=== PATIENT | female | born 1955 | race Caucasian/White ===

== ENCOUNTER → 2017-10-07 09:00 | Outpatient (CLI) | payer OTHER, SELFPAY ==
[2017-10-07 09:44] LABS: Protein, Urine (Random) < 6.0 mg/dL (<11.9); Protein:Creat Ratio 143 mg/g CRE (0-200)
[2017-10-07 09:55] LABS: Anion Gap 10 (5-15); BUN 23 mg/dL (7-18); BUN/Creat Ratio 18.9 RATIO (10-20); Calcium,Total 8.9 mg/dL (8.5-10.1); Chloride 102 mmol/L (98-107); Creatinine, Serum 1.22 mg/dL (0.55-1.02); EST Glomerular Filtration Rate 47 mL/min (>60); Est Glom Filt Rate - Afr Amer 57 mL/min (>60); Glucose 91 mg/dL (74-106); Potassium 4.1 mmol/L (3.5-5.1); Sodium Level 137 mmol/L (136-145)
== END ==
PROVIDERS: Family Provider Internal Medicine; PCP Internal Medicine; Visit Provider Internal Medicine Nephrology
DX: N18.3 Chronic kidney disease, stage 3 (moderate) (principal); R80.9 Proteinuria, unspecified
CPT/HCPCS: 36415; 80048; 82570; 84156

== ENCOUNTER → 2018-08-11 08:39 | Outpatient (CLI) | payer MEDICARE, SELFPAY ==
[2018-08-11 10:24] LABS: Mean Corp Hgb Conc 30.8 g/gl (32-36); Mean Corpuscular Volume 87.6 fL (81-99); Platelet Count 152 K/mm3 (150-450); RBC Distribution Width CV 14.3 % (11.6-14.6); RBC Distribution Width SD 46.3 fl (35.1-43.9); Red Blood Count 4.45 M/mm3 (4.2-5.4); White Blood Count 4.7 K/mm3 (4.4-11.0)
[2018-08-11 10:26] LABS: Scan Indicated on CBC? Y/N NO
[2018-08-11 10:47] LABS: Protein, Urine (Random) < 6.0 mg/dL (<11.9)
[2018-08-11 10:58] LABS: PTHIN 110.3 pg/mL (18.4-80.1)
[2018-08-11 10:59] LABS: Vitamin D,25 Hydroxy 43.2 ng/mL (29.95-100.01)
[2018-08-11 11:02] LABS: Albumin, Serum 4.1 g/dL (3.2-5.0); BUN 23 mg/dL (7-18); BUN/Creat Ratio 19.3 RATIO (10-20); Chloride 104 mmol/L (98-107); Creatinine, Serum 1.19 mg/dL (0.55-1.02); EST Glomerular Filtration Rate 48 mL/min (>60); Est Glom Filt Rate - Afr Amer 59 mL/min (>60); Glucose 88 mg/dL (74-106); Phosphorus 3.2 mg/dL (2.5-4.9); Potassium 4.2 mmol/L (3.5-5.1); Sodium Level 139 mmol/L (136-145)
== END ==
PROVIDERS: Family Provider Internal Medicine; PCP Internal Medicine; Referring Provider Internal Medicine Nephrology; Visit Provider Internal Medicine Nephrology
DX: N18.3 Chronic kidney disease, stage 3 (moderate) (principal)
CPT/HCPCS: 36415; 80069; 82306; 82570; 83970; 84156; 85027

== ENCOUNTER → 2018-10-07 07:50 | Outpatient (CLI) | payer MEDICARE, SELFPAY ==
--- NOTE | 2018-10-07 07:53 | US_ITS ---
STUDY: ABDOMINAL ULTRASOUND - RIGHT UPPER QUADRANT REASON FOR VISIT: Female, 63 years old. Abdominal mass TECHNIQUE: Ultrasound evaluation of the right upper quadrant was performed with real-time and static morejon-scale imaging. TECHNICAL QUALITY: Adequate. COMPARISON: None. FINDINGS: Liver: The liver measures 22 cm. There is normal echogenicity of the liver. The bile ducts are within normal limits. There is hepatic color flow. The direction of portal flow is hepatopetal. There are innumerable cystic lesions within the liver. Gallbladder: Distended gallbladder with possible septation. The gallbladder wall measures 2.1 mm. There is a negative sonographic Winter's sign. There is no pericholecystic fluid. There are no gallstones. Common Bile Duct (C.B.D.): The common bile duct measures 3.7 mm. Pancreas: Limited visualization of the pancreas. Right Kidney: Normal size of the right kidney. The right kidney measures 15.3 x 10.6 x 7.0 cm. Normal renal cortex. The right cortex measures 2.0 cm. There are innumerable cystic lesions of the right kidney. There is no right hydronephrosis. US/Abdomen Limited IMPRESSION: Innumerable cystic lesions are noted within the liver and right kidney. Electronically Signed: Dayton Frankel DO at 0:00 EST Tel [phone], Service support ,
--- NOTE | 2018-10-07 08:51 | BD_ITS ---
STUDY: DUAL ENERGY X-RAY ABSORPTIOMETRY / DXA REASON FOR EXAM: Female, 63 years old. The patient is postmenopausal. No loss of height. TECHNIQUE: Bone Mineral Density (BMD) measurements of lumbar spine and bilateral hips were obtained. COMPARISON: Comparison is made with prior study dated October 02, 2011. FINDINGS: Lumbar Spine (L1-L4): g/cm2 (1.105) / T-score (-0.6) / Z-score (1.0) Findings are suggestive of normal bone density with a low fracture risk. Left Femur Total: g/cm2 (0.897) / T-score (-0.9) / Z-score (0.3) Left Femoral Neck: g/cm2 (0.914) / T-score (-0.9) / Z-score (0.6) Right Femur Total: g/cm2 (0.904) / T-score (-0.8) / Z-score (0.4) Right Femoral Neck: g/cm2 (0.861) / T-score (-1.3) / Z-score (0.2) The T-Scores on the most recent prior examination were: Lumbar Spine (L1-L4): There has been worsening of bone density since the previous examination. Left Femur Total: which represents a worsening of 10.8%. Right Femur Total: which represents a worsening of 9.8%. BD/Dexa Bone Density Study IMPRESSION: The patient is considered osteopenic as outlined below according to World Vaibhav Organization (WHO) criteria with a moderate fracture risk. There has been worsening of bone density since the previous examination. Reference Information: The T-score is the number of standard deviations above or below the standard which is normal for young adults at their peak bone mineral density. The World Health Organization (WHO) interprets the T-scores as follows: Above -1 Normal bone density Between -1 and -2.5 Osteopenia Equal to / or below -2.5 Osteoporosis As a practical clinical guideline, osteopenia may be graded as follows: Mild -1 through -1.5 Moderate -1.6 through -2.0 Severe -2.1 through -2.4 The Z-score is the number of standard deviations above or below age-matched controls. A Z-score of less than -1.5 would be considered abnormal. References: 1. NIH Osteoporosis and Related Bone Diseases http://www.osteo.org 2. International Society for Clinical Densitometry http://www.iscd.org 3. National Osteoporosis Foundation http://www.nof.org Electronically Signed: Danis Chin, at 15:18 EST , Service support ,
== END ==
PROVIDERS: Family Provider Internal Medicine; PCP Internal Medicine; Referring Provider Internal Medicine; Visit Provider Internal Medicine
DX: R19.01 Right upper quadrant abdominal swelling, mass and lump (principal); Z78.0 Asymptomatic menopausal state
CPT/HCPCS: 76705; 77080

== ENCOUNTER → 2019-05-04 | Outpatient (CLI) | payer MEDICARE, SELFPAY ==
--- NOTE | 2019-05-04 12:31 | MRI_ITS ---
STUDY: MRA OF THE HEAD WITHOUT CONTRAST REASON FOR EXAM: Female, 64 years old. Polycystic renal disease. Previous left ear stapes implant. TECHNIQUE: 3-D ttkw-gs-ebtkui (TOF) imaging was performed with MIPs. The study was performed unenhanced. COMPARISON: None. FINDINGS: Normal bilateral petrous carotid arteries. Normal right cavernous carotid artery with a normal supraclinoid bifurcation. Normal left cavernous carotid artery with a normal supraclinoid bifurcation. Normal right A1 segment of the anterior cerebral artery. Normal left A1 segment of the anterior cerebral artery. Normal intact anterior communicating artery (ACOM). Normal bilateral A2 segments of the anterior cerebral arteries. Normal right M1 and M2 segments of the middle cerebral arteries, with a normal M1 bifurcation. Normal left M1 and M2 segments of the middle cerebral arteries, with a normal M1 bifurcation. No visible right posterior communicating artery (PCOM). No visible left posterior communicating artery (PCOM). Normal bilateral vertebral arteries. The left vertebral artery is dominant. Normal basilar artery with a normal basilar bifurcation. The visualized bilateral superior cerebellar (SCA) arteries are normal. Normal bilateral P1, P2 and visualized P3 segments of the posterior cerebral arteries. There is no demonstrated aneurysm of the [place]. There is no major vessel occlusion or hemodynamically significant stenosis. MRI/MRA Head ONLY without Contrast IMPRESSION: Normal MRA of the head Electronically Signed: Elia Lind MD at 16:25 EDT , Service support ,
[2019-05-04 13:34] LABS: Protein, Urine (Random) < 6.0 mg/dL (<11.9)
[2019-05-04 13:41] LABS: Hematocrit 40.9 % (37-47); Hemoglobin 12.9 g/dL (12.0-15.0); Mean Corp Hgb Conc 31.5 g/dL (32-36); Mean Corpuscular Hgb 29.7 pg (27.0-32.0); Mean Platelet Vol. 9.6 fl (6.2-12.0); Platelet Count 159 K/mm3 (150-450); RBC Distribution Width CV 13.8 % (11.6-14.6); RBC Distribution Width SD 47.4 fl (35.1-43.9); Red Blood Count 4.35 M/mm3 (4.2-5.4)
[2019-05-04 13:55] LABS: Albumin, Serum 3.8 g/dL (3.2-5.0); BUN 22 mg/dL (7-18); BUN/Creat Ratio 17.6 RATIO (10-20); Chloride 109 mmol/L (98-107); Creatinine, Serum 1.25 mg/dL (0.55-1.02); EST Glomerular Filtration Rate 46 mL/min (>60); Est Glom Filt Rate - Afr Amer 55 mL/min (>60); Glucose 110 mg/dL (74-106); Potassium 3.8 mmol/L (3.5-5.1); Sodium Level 144 mmol/L (136-145)
[2019-05-04 14:41] LABS: PTHIN 59.2 pg/mL (18.4-80.1); Vitamin D,25 Hydroxy 35.8 ng/mL (29.95-100.01)
== END | disposition home or self-care (01) ==
PROVIDERS: Family Provider Internal Medicine; PCP Internal Medicine; Referring Provider Internal Medicine Nephrology; Visit Provider Internal Medicine Nephrology
DX: Q61.3 Polycystic kidney, unspecified (principal); N18.3 Chronic kidney disease, stage 3 (moderate); E55.9 Vitamin D deficiency, unspecified
CPT/HCPCS: 36415; 70544; 80069; 82306; 82570; 83970; 84156; 85027

== ENCOUNTER → 2020-05-05 | Outpatient (CLI) | payer MEDICARE, SELFPAY ==
[2020-05-05 11:03] LABS: Hematocrit 39.6 % (37-47); Hemoglobin 12.6 g/dL (12.0-15.0); Mean Corp Hgb Conc 31.8 g/dL (32-36); Mean Corpuscular Hgb 30.1 pg (27.0-32.0); Mean Corpuscular Volume 94.5 fL (81-99); Mean Platelet Vol. 9.3 fl (6.2-12.0); Platelet Count 156 K/mm3 (150-450); Protein, Urine (Random) < 6.0 mg/dL (<11.9); Protein:Creat Ratio 105 mg/g CRE (0-200); RBC Distribution Width SD 45.4 fl (35.1-43.9); Red Blood Count 4.19 M/mm3 (4.2-5.4); White Blood Count 4.7 K/mm3 (4.4-11.0)
[2020-05-05 11:15] LABS: PTHIN 63.1 pg/mL (18.4-80.1)
[2020-05-05 11:16] LABS: Albumin, Serum 3.7 g/dL (3.2-5.0); BUN 23 mg/dL (7-18); BUN/Creat Ratio 17.4 RATIO (10-20); Calcium,Total 9.2 mg/dL (8.5-10.1); Chloride 104 mmol/L (98-107); Creatinine, Serum 1.32 mg/dL (0.55-1.02); EST Glomerular Filtration Rate 43 mL/min (>60); Est Glom Filt Rate - Afr Amer 52 mL/min (>60); Glucose 84 mg/dL (74-106); Phosphorus 2.9 mg/dL (2.5-4.9); Potassium 4.6 mmol/L (3.5-5.1); Sodium Level 137 mmol/L (136-145)
[2020-05-05 11:19] LABS: Vitamin D,25 Hydroxy 54.8 ng/mL
== END | disposition home or self-care (01) ==
LOC: LAB 09:50
PROVIDERS: PCP Internal Medicine; Referring Provider Internal Medicine Nephrology; Visit Provider Internal Medicine Nephrology
DX: E55.9 Vitamin D deficiency, unspecified (principal); N18.3 Chronic kidney disease, stage 3 (moderate); R80.9 Proteinuria, unspecified
CPT/HCPCS: 36415; 80069; 82306; 82570; 83970; 84156; 85027

== ENCOUNTER → 2020-07-11 07:09 | Outpatient (CLI) | payer MEDICARE, SELFPAY ==
[2020-07-11 07:33] LABS: Hematocrit 43.9 % (37-47); Hemoglobin 13.8 g/dL (12.0-15.0); Mean Corp Hgb Conc 31.4 g/dL (32-36); Mean Corpuscular Hgb 29.6 pg (27.0-32.0); Mean Platelet Vol. 9.2 fl (6.2-12.0); Platelet Count 148 K/mm3 (150-450); RBC Distribution Width CV 12.7 % (11.6-14.6); RBC Distribution Width SD 43.9 fl (35.1-43.9); Red Blood Count 4.67 M/mm3 (4.2-5.4); White Blood Count 4.4 K/mm3 (4.4-11.0)
[2020-07-11 07:44] LABS: Protein, Urine (Random) 10.1 mg/dL (<11.9); Protein:Creat Ratio 101 mg/g CRE (0-200)
[2020-07-11 07:54] LABS: Albumin, Serum 4.2 g/dL (3.2-5.0); BUN 20 mg/dL (7-18); BUN/Creat Ratio 14.3 RATIO (10-20); Calcium,Total 9.5 mg/dL (8.5-10.1); Chloride 108 mmol/L (98-107); EST Glomerular Filtration Rate 40 mL/min (>60); Est Glom Filt Rate - Afr Amer 48 mL/min (>60); Glucose 89 mg/dL (74-106); Phosphorus 3.2 mg/dL (2.5-4.9); Potassium 4.1 mmol/L (3.5-5.1); Sodium Level 140 mmol/L (136-145)
[2020-07-11 09:06] LABS: Vitamin D,25 Hydroxy 54.9 ng/mL
== END ==
PROVIDERS: PCP Internal Medicine; Referring Provider Internal Medicine Nephrology; Visit Provider Internal Medicine Nephrology
DX: N18.30 Chronic kidney disease, stage 3 unspecified (principal); E55.9 Vitamin D deficiency, unspecified; R80.9 Proteinuria, unspecified
CPT/HCPCS: 36415; 80069; 82306; 82570; 83970; 84156; 85027

== ENCOUNTER 2020-10-13 06:57 | Outpatient (RCR) | payer MEDICARE, SELFPAY ==
[2020-10-13] MEDS: COVID-19 VACC, MRNA(PFIZER)/PF 30 MCG/0.3 ML SYRINGE IM (11:33)
[2020-11-03] MEDS: COVID-19 VACC, MRNA(PFIZER)/PF 30 MCG/0.3 ML SYRINGE IM (11:22)
== END 2020-10-13 23:59 ==
LOC: IMMUN 06:57
PROVIDERS: PCP Internal Medicine; Referring Provider Family Medicine; Visit Provider Family Medicine
DX: Z23 Encounter for immunization (principal)
CPT/HCPCS: 0001A; 0002A

== ENCOUNTER → 2021-01-13 09:47 | Outpatient (CLI) | payer MEDICARE, SELFPAY ==
[2021-01-13 10:37] LABS: Protein, Urine (Random) 7.8 mg/dL (<11.9); Protein:Creat Ratio 169 mg/g CRE (0-200)
[2021-01-13 10:41] LABS: Anion Gap 5 (5-15); BUN 17 mg/dL (7-18); BUN/Creat Ratio 12.9 RATIO (10-20); Calcium,Total 9.2 mg/dL (8.5-10.1); Chloride 105 mmol/L (98-107); Creatinine, Serum 1.32 mg/dL (0.55-1.02); EST Glomerular Filtration Rate 43 mL/min (>60); Est Glom Filt Rate - Afr Amer 52 mL/min (>60); Glucose 90 mg/dL (74-106); Potassium 4.2 mmol/L (3.5-5.1); Sodium Level 138 mmol/L (136-145)
== END ==
PROVIDERS: PCP Internal Medicine; Referring Provider Internal Medicine Nephrology; Visit Provider Internal Medicine Nephrology
DX: N18.32 Chronic kidney disease, stage 3b (principal)
CPT/HCPCS: 36415; 80048; 82570; 84156

== ENCOUNTER → 2021-07-12 08:40 | Outpatient (CLI) | payer MEDICARE, SELFPAY ==
[2021-07-12 10:27] LABS: Absolute Lymphocyte Count 1.21 X10^3/uL (0.83-4.51); Absolute Neutrophil Count 2.4 X10^3/uL (2.0-7.7); Basophil# 0.03 X10^3/uL; Basophil% 0.7 % (0-1); Eosinophil# 0.14 X10^3/uL; Eosinophils% 3.4 % (0-5); Hematocrit 38.3 % (37-47); Hemoglobin 12.4 g/dL (12.0-15.0); Lymphocyte # 1.21 X10^3/ul (0.83-4.51); Lymphocyte % 29.1 % (19-41); Mean Corp Hgb Conc 32.4 g/dL (32-36); Mean Corpuscular Hgb 30.2 pg (27.0-32.0); Mean Corpuscular Volume 93.4 fL (81-99); Mean Platelet Vol. 9.6 fl (6.2-12.0); Monocyte# 0.37 X10^3/uL; Monocyte% 8.9 % (0-10); NRBC Flagged by Analyzer 0 % (0-5); Neutrophil % 57.7 % (47-70); Platelet Count 148 K/mm3 (150-450); RBC Distribution Width CV 13.4 % (11.6-14.6); RBC Distribution Width SD 46.1 fl (35.1-43.9); White Blood Count 4.2 K/mm3 (4.4-11.0)
[2021-07-12 10:51] LABS: Protein, Urine (Random) 12.5 mg/dL (<11.9); Protein:Creat Ratio 156 mg/g CRE (0-200)
[2021-07-12 11:14] LABS: ALB/GLOB Ratio 1.1 RATIO (0.9-2.4); AST(SGOT) 40 U/L (15-37); Alanine Aminotransfer ALT/SGPT 52 U/L (13-56); Albumin, Serum 3.6 g/dL (3.2-5.0); Alkaline Phosphatase 296 U/L (45-117); Anion Gap 8 (5-15); BUN 25 mg/dL (7-18); BUN/Creat Ratio 19.4 RATIO (10-20); Calcium,Total 9.1 mg/dL (8.5-10.1); Chloride 103 mmol/L (98-107); Cholesterol 221 mg/dL (200); Creatinine, Serum 1.29 mg/dL (0.55-1.02); EST Glomerular Filtration Rate 44 mL/min (>60); Est Glom Filt Rate - Afr Amer 53 mL/min (>60); Globulin 3.2 g/dL (2.2-4.2); Glucose 85 mg/dL (74-106); High Density Lipoprotein 91 mg/dL; Potassium 4.5 mmol/L (3.5-5.1); Protein, Total 6.8 g/dL (6.4-8.2); Sodium Level 137 mmol/L (136-145); Thyroid Stim Hormone (TSH) 5.47 uIU/mL (0.358-3.74); Triglycerides 52 mg/dL; Very Low Density Lipoprotein 10 mg/dL (5-40)
== END ==
PROVIDERS: PCP Internal Medicine; Visit Provider Internal Medicine
DX: N18.32 Chronic kidney disease, stage 3b (principal); R82.90 Unspecified abnormal findings in urine; Z13.220 Encounter for screening for lipoid disorders
CPT/HCPCS: 36415; 80053; 80061; 82570; 84156; 84443; 85025; 87086; 87088

== ENCOUNTER → 2021-07-24 07:38 | Outpatient (CLI) | payer MEDICARE, SELFPAY ==
--- NOTE | 2021-07-24 07:39 | US_ITS ---
STUDY: ABDOMINAL ULTRASOUND - RIGHT UPPER QUADRANT REASON FOR VISIT: Female, 66 years old ABDOMINAL MASS RUQ- pt has known polycystic kidney/liver TECHNIQUE: Ultrasound evaluation of the right upper quadrant was performed with real-time and static morejon-scale imaging. TECHNICAL QUALITY: Adequate. COMPARISON: Comparison is made with prior study dated 08/06/2019. FINDINGS: Liver: The liver is enlarged and measures 20.3 cm. There is normal echogenicity of the liver. The bile ducts are within normal limits. There is hepatic color flow. The direction of portal flow is hepatopetal. Multiple cysts are seen throughout the liver. This involves both the right and left lobes. Gallbladder: Normal distended gallbladder. The gallbladder wall measures 2 mm. There is a negative sonographic Winter''s sign. There is no pericholecystic fluid. There are no gallstones. Common Bile Duct (C.B.D.): The common bile duct was unable to be well defined due to the multiple hepatic cysts. Pancreas: Normal size of the head, body and tail of the pancreas. There is normal echogenicity of the pancreas. There is no demonstrated pancreatic mass or cyst. Right Kidney: Normal size of the right kidney. The right kidney measures 16.1 cm x 9.7 cm x 6.8 cm. Multiple renal cysts. There is no right hydronephrosis. US/Liver IMPRESSION: Multiple hepatic and right renal cysts. Hepatomegaly. Electronically Signed: Danis Chin MD at 13:28 EST , Service support ,
== END ==
PROVIDERS: PCP Internal Medicine; Referring Provider Internal Medicine; Visit Provider Internal Medicine
DX: R19.01 Right upper quadrant abdominal swelling, mass and lump (principal)
CPT/HCPCS: 76705

== ENCOUNTER → 2021-08-01 08:13 | Outpatient (CLI) | payer MEDICARE, SELFPAY ==
[2021-08-01 08:55] LABS: Absolute Lymphocyte Count 1.23 X10^3/uL (0.83-4.51); Absolute Neutrophil Count 2.5 X10^3/uL (2.0-7.7); Basophil# 0.04 X10^3/uL; Basophil% 0.9 % (0-1); Eosinophil# 0.14 X10^3/uL; Eosinophils% 3.3 % (0-5); Hematocrit 39.2 % (37-47); Lymphocyte # 1.23 X10^3/ul (0.83-4.51); Lymphocyte % 28.7 % (19-41); Mean Corp Hgb Conc 33.2 g/dL (32-36); Mean Corpuscular Hgb 30.4 pg (27.0-32.0); Mean Corpuscular Volume 91.6 fL (81-99); Mean Platelet Vol. 9.4 fl (6.2-12.0); Monocyte# 0.34 X10^3/uL; Monocyte% 7.9 % (0-10); NRBC Flagged by Analyzer 0 % (0-5); Neutrophil # 2.53 X10^3/uL (2.7-7.7); Platelet Count 142 K/mm3 (150-450); RBC Distribution Width CV 13.6 % (11.6-14.6); RBC Distribution Width SD 46.1 fl (35.1-43.9); Red Blood Count 4.28 M/mm3 (4.2-5.4); White Blood Count 4.3 K/mm3 (4.4-11.0)
[2021-08-01 09:26] LABS: Thyroid Stim Hormone (TSH) 6.84 uIU/mL (0.358-3.74)
[2021-08-02 15:08] LABS: Bone Fraction 15 % (14-68); Liver Fraction 85 % (18-85)
[2021-08-02 16:31] LABS: Alkaline Phosphatase, Serum 267 IU/L (44-121); Intestinal Fraction 0 % (0-18)
== END ==
PROVIDERS: PCP Internal Medicine; Referring Provider Internal Medicine; Visit Provider Internal Medicine
DX: D72.9 Disorder of white blood cells, unspecified (principal); R79.89 Other specified abnormal findings of blood chemistry; R74.8 Abnormal levels of other serum enzymes
CPT/HCPCS: 36415; 84075; 84080; 84443; 85025

== ENCOUNTER → 2022-01-12 | Outpatient (CLI) | payer MEDICARE, SELFPAY ==
[2022-01-12 09:22] LABS: Hematocrit 37.7 % (37-47); Hemoglobin 12.4 g/dL (12.0-15.0); Mean Corp Hgb Conc 32.9 g/dL (32-36); Mean Corpuscular Hgb 30.6 pg (27.0-32.0); Mean Corpuscular Volume 93.1 fL (81-99); Mean Platelet Vol. 8.6 fl (6.2-12.0); Platelet Count 132 K/mm3 (150-450); RBC Distribution Width CV 13.2 % (11.6-14.6); RBC Distribution Width SD 45.1 fl (35.1-43.9); Red Blood Count 4.05 M/mm3 (4.2-5.4); White Blood Count 4.3 K/mm3 (4.4-11.0)
[2022-01-12 09:44] LABS: Albumin, Serum 3.7 g/dL (3.2-5.0); BUN 21 mg/dL (7-18); BUN/Creat Ratio 17.5 RATIO (10-20); Calcium,Total 9.2 mg/dL (8.5-10.1); Chloride 103 mmol/L (98-107); EST Glomerular Filtration Rate 47 mL/min (>60); Est Glom Filt Rate - Afr Amer 57 mL/min (>60); Glucose 91 mg/dL (74-106); Phosphorus 3.1 mg/dL (2.5-4.9); Potassium 4.3 mmol/L (3.5-5.1); Sodium Level 136 mmol/L (136-145)
[2022-01-12 09:47] LABS: PTHIN 60.4 pg/mL (18.4-80.1)
[2022-01-12 09:48] LABS: Vitamin D,25 Hydroxy 78.4 ng/mL
[2022-01-12 10:54] LABS: Protein, Urine (Random) 8.2 mg/dL (<11.9); Protein:Creat Ratio 199 mg/g CRE (0-200)
== END | disposition home or self-care (01) ==
LOC: LAB 09:06
PROVIDERS: PCP Internal Medicine; Referring Provider Internal Medicine Nephrology; Visit Provider Internal Medicine Nephrology
DX: R80.9 Proteinuria, unspecified (principal); N18.32 Chronic kidney disease, stage 3b; E55.9 Vitamin D deficiency, unspecified
CPT/HCPCS: 36415; 80069; 82306; 82570; 83970; 84156; 85027

== ENCOUNTER → 2022-06-28 | Outpatient (CLI) | payer MEDICARE, SELFPAY ==
--- NOTE | 2022-06-28 12:59 | BI_ITS ---
MAMMOGRAPHY - BILATERAL SCREENING REASON FOR EXAM: Female, 67 years old. Routine annual screening examination. PERTINENT HISTORY: Non-contributory. TECHNIQUE: Digital bilateral breast anupam (3D mammographic acquisition) in the CC and MLO projections. 2-D mediolateral oblique (MLO) and craniocaudad (CC) views of both breasts were obtained. CAD: Full Field Digital Mammography with Computer Added Detection was performed. COMPARISON: None. Baseline examination. FINDINGS: Breast Composition: The breasts are heterogeneously dense, which may obscure small masses. There are no dominant masses or suspicious calcifications. No other significant abnormalities are identified. BI/SCRN MAMM (CAD)W/ANUPAM BILAT IMPRESSION: Negative screening mammogram. Yearly followup mammogram recommended. (A) ASSESSMENT CATEGORY: BIRADS Category 1: Negative. A letter regarding these results will be sent to the patient by the facility within 30 days. Approximately 10% of breast cancers are not detected by mammography. A normal mammogram should not delay biopsy of a clinically suspicious abnormality. [id number] Electronically Signed: Danis Chin MD at 14:38 EST ,
--- NOTE | 2022-06-28 13:03 | BD_ITS ---
STUDY: DUAL ENERGY X-RAY ABSORPTIOMETRY / DXA REASON FOR EXAM: Female, 67 years old. [id number] TECHNIQUE: Bone Mineral Density (BMD) measurements of lumbar spine and bilateral hips were obtained. COMPARISON: Comparison is made with prior study dated 10/07/2018. FINDINGS: Lumbar Spine (L1-L4): g/cm2 (0.974) / T-score (-0.7) / Z-score (1.4) Findings are suggestive of normal bone density with a low fracture risk. Left Femur Total: g/cm2 (0.834) / T-score (-0.9) / Z-score (0.6) Left Femoral Neck: g/cm2 (0.779) / T-score (-0.6) / Z-score (1.1) Right Femur Total: g/cm2 (0.833) / T-score (-0.9) / Z-score (0.6) Right Femoral Neck: g/cm2 (0.748) / T-score (-0.9) / Z-score (0.8) The T-Scores on the most recent prior examination were: Lumbar Spine (L1-L4): There has been worsening of bone density since the previous examination. Left Femur Total: which represents no significant change. . Right Femur Total: which represents a worsening of 0.8%. BD/Dexa Bone Density Study IMPRESSION: The patient is considered normal as outlined below according to World Vaibhav Organization (WHO) criteria with a low fracture risk. There has been worsening of bone density since the previous examination. Reference Information: The T-score is the number of standard deviations above or below the standard which is normal for young adults at their peak bone mineral density. The World Health Organization (WHO) interprets the T-scores as follows: Above -1 Normal bone density Between -1 and -2.5 Osteopenia Equal to / or below -2.5 Osteoporosis As a practical clinical guideline, osteopenia may be graded as follows: Mild -1 through -1.5 Moderate -1.6 through -2.0 Severe -2.1 through -2.4 The Z-score is the number of standard deviations above or below age-matched controls. A Z-score of less than -1.5 would be considered abnormal. References: 1. NIH Osteoporosis and Related Bone Diseases www osteo.org 2. International Society for Clinical Densitometry www iscd.org 3. National Osteoporosis Foundation www nof.org Electronically Signed: Danis Chin MD at 12:18 EST ,
== END | disposition home or self-care (01) ==
LOC: OPBI 12:56
PROVIDERS: PCP Internal Medicine; Referring Provider Internal Medicine; Visit Provider Internal Medicine
DX: Z12.31 Encounter for screening mammogram for malignant neoplasm of breast (principal); Z78.0 Asymptomatic menopausal state
CPT/HCPCS: 77063; 77067; 77080

== ENCOUNTER → 2022-07-13 | Outpatient (CLI) | payer MEDICARE, SELFPAY ==
[2022-07-13 11:33] LABS: Protein, Urine (Random) 7.9 mg/dL (<11.9); Protein:Creat Ratio 87 mg/g CRE (0-200)
[2022-07-13 11:40] LABS: Anion Gap 3 (5-15); BUN 24 mg/dL (7-18); BUN/Creat Ratio 15.6 RATIO (10-20); Calcium,Total 9.8 mg/dL (8.5-10.1); Chloride 107 mmol/L (98-107); Creatinine, Serum 1.54 mg/dL (0.55-1.02); EST Glomerular Filtration Rate 36 mL/min (>60); Est Glom Filt Rate - Afr Amer 43 mL/min (>60); Glucose 63 mg/dL (74-106); Potassium 4.2 mmol/L (3.5-5.1); Sodium Level 140 mmol/L (136-145)
== END | disposition home or self-care (01) ==
PROVIDERS: PCP Internal Medicine; Referring Provider Internal Medicine Nephrology; Visit Provider Internal Medicine Nephrology
DX: Q61.3 Polycystic kidney, unspecified (principal)
CPT/HCPCS: 36415; 80048; 82570; 84156

== ENCOUNTER 2022-08-22 07:24 | Day surgery (SDC) | payer MEDICARE, SELFPAY ==
[2022-08-22] VITALS (7 sets, daily range): BP systolic 112–130; BP diastolic 61–88; PULSE 58–91; RESP 16–18; TEMP 36.2–37; O2SAT 99–100
--- NOTE | 2022-08-22 07:43 | H&P.OPEN ---
HPI - General HPI Narrative CHAPINCITO COOLEY, is a 67 F who presents presents for screening colonoscopy. Patient never had previous colonoscopy. Denies any family history of colon cancer. Patient has bowel movements daily denies any blood. Patient denies any chronic abdominal pain/nausea/vomiting/reflux. PFS Medical History (Updated 08/20/22 @ 13:08 by Marley Escobar) Cancer CKD (chronic kidney disease) Depression History of renal disease Hypertension Hypothyroidism Non-smoker Open wound Osteopenia Personal history of urinary calculi Polycystic kidney, unspecified Thyroid disease Wears glasses Home Medications bupropion HCl 150 mg 24 hr tablet, extended release (Wellbutrin XL) 150 mg PO QAM 07/02/22 [History Last Taken Unknown] cholecalciferol (vitamin D3) 25 mcg (1,000 unit) capsule (Vitamin D3) 25 mcg PO DAILY 07/02/22 [History Last Taken Unknown] cyanocobalamin (vitamin B-12) 1,000 mcg capsule 1,000 mcg PO DAILY 07/02/22 [History Last Taken Unknown] escitalopram oxalate 10 mg tablet 10 mg PO DAILY 07/02/22 [History Last Taken Unknown] levothyroxine 50 mcg capsule 50 mcg PO DAILY 07/02/22 [History Last Taken Unknown] lorazepam 0.5 mg tablet 0.5 mg PO DAILY PRN Anxiety 07/02/22 [History Last Taken Unknown] losartan 50 mg tablet 50 mg PO DAILY 07/02/22 [History Last Taken Unknown] thiamine HCl (vitamin B1) 100 mg tablet 100 mg PO DAILY 07/02/22 [History Last Taken Unknown] vitamin E mixed 400 unit capsule 100 unit PO DAILY 07/02/22 [History Last Taken Unknown] Allergy/AdvReac Type Severity Reaction Status Date / Time Penicillins Allergy Severe Anaphylaxis Verified 07/02/22 08:35 adhesive AdvReac Rash Verified 07/02/22 08:35 Bandaids AdvReac Rash Uncoded 07/02/22 08:35 Surgical History (Updated 08/20/22 @ 13:08 by Marley Escobar) History of abdominal hysterectomy History of breast augmentation History of stapedectomy History of tubal ligation Social History (Updated 07/02/22 @ 08:32 by Juanita Devi) household members: spouse Smoking Status: Never smoker Past Medical/Surgical History Planned Operation Planned Operative Procedure/s: COLONOSCOPY Previous Hospitalizations/Surgeries HX Hospitalizations: No Any Problems With Anesthesia: No You/Your Family Experience Fever (Hyperthermia) With Anes: No Cholinesterase deficiency: No Cardiovascular Hx of Irregular Heartbeat and/or Afib: No Hx Heart Attack: No Hx Congestive Heart Failure: No Hx Hypertension: Yes Hx Pacemaker: No Respiratory Hx Chronic Obstructive Pulmonary Disease (COPD): No Hx Asthma: Yes Hx Emphysema: No Hx Sleep Apnea: No Hx Respiratory Tract Infection/Cold (presently): No Do You Snore Loudly (louder than talking or can be heard): No Do You Often Feel Tired/ Fatigued/ Sleepy [place] Daytime?: No Has Anyone Observed You Stop Breathing During Sleep?: No Result (for STOP score): Negative Smoking Status: Never smoker Gastrointestinal Hx Gastroesophageal Reflux: No Hx Ulcer: No Neurological Hx Seizures: No Hx Head/Neck Injury: No Hx Headaches: No Hx Back Injury/Pain: No Does patient have nerve stimulator: No Allergies Penicillins Allergy (Severe, Verified 07/02/22 08:35) Anaphylaxis adhesive Adverse Reaction (Verified 07/02/22 08:35) Rash Bandaids Adverse Reaction (Uncoded 07/02/22 08:35) Rash Discharge Is Pt Admitted From a Assisted, or a Snf: No Who Could Help: FRIEND After D/C, Where Do you Plan to Go: Return Home Physical Exam Const alert, oriented x3 and no apparent distress HEENT normocephalic and head/scalp atraumatic Resp normal respiratory effort Cardio regular rate GI soft to palpation and non-tender GI Narrative: Abdomen moderately distended due to polycystic liver/kidney disease per patient Palpation: Negative for guarding Extremity no clubbing, cyanosis or edema Neuro CN's II-XII intact bilaterally Psych mental status grossly normal Assessment & Plan Assessment/Plan (1) Encounter for screening for malignant neoplasm of colon: Surgery Risks - Colonoscopy Risks Include but are not Limited To: Risks include but are not limited to: Bleeding, perforation requiring further surgery, inability to complete colonoscopy requiring barium enema.
[2022-08-22] MEDS: Lactated Ringers 1,000 ML 15 ML IV (07:45)
--- NOTE | 2022-08-22 08:45 | COLBX_PTH ---
PATIENT: CHAPINCITO COOLEY LOC: EN U#:[id number] AGE/SX: 67/F ROOM: RE08/22/[address]: Dr. Lexus Casey MD : 1955 BED: DIS: 08/22/2022 SPEC #: [id number] RECD: 08/22/22 11:35 STATUS: JENNIFER ALEXANDER #: [id number] ALEKSANDR: 08/22/22 08:[address]: Lexus Casey DEPT: SURGICAL PATHOLOGY RECD BY: Gi Aguilar ENTERED: 08/22/22 13:52 SP TYPE: COLON BX OTHR DR: Dr. Cris Flaherty, DO Tissues: A - Ascending colon C - Transverse colon Procedures: Surgery Specimen Level IV HEADER OPERATION: Colonoscopy ? open access (MAC), biopsy, polypectomy PRE-OP DIAGNOSIS: Screening TISSUE SUBMITTED: A ? Ascending polyp x2 biopsy, B ? Transverse polyp MICROSCOPIC DIAGNOSIS A. Ascending colon polyp x2, biopsy: Tubular adenoma. Hyperplastic polyp. B. Transverse colon polyp, polypectomy: Tubular adenoma. Hyperplastic polyp. SJ:anisha 08/23/2022 MICROSCOPIC DESCRIPTION Slides are reviewed. GROSS DESCRIPTION A - Received in fixative is one container labeled with the patient's name and designated ascending colon polyp biopsy. The specimen consists of multiple irregular fragments of light fuentes soft tissue that in aggregate measure 0.7 x 0.5 x 0.1 cm. The specimen is totally submitted in one cassette. B - Received in fixative is one container labeled with the patient's name and designated transverse polyp. The specimen consists of two irregular fragments of light fuentes soft tissue that in aggregate measure 0.7 x 0.3 x 0.1 cm. The specimen is totally submitted in one cassette. / AM:anisha 08/22/2022 TC:1 CPT: 25574 x2
--- NOTE | 2022-08-22 10:01 | OP.COLON_ITS ---
Patient Name: Jena Dewey Procedure Date: 08/22/2022 9:21 AM Date of : 1955 Age: 67 Procedure: Colonoscopy Indications: Screening for colorectal malignant neoplasm Providers: Lexus Casey MD Medicines: Monitored Anesthesia Care Patient Profile: This is a 67 year old female. Last Colonoscopy: none. The patient's first colonoscopy is today. Complications: No immediate complications. Procedure: Pre-Anesthesia Assessment: - Prior to the procedure, a History and Physical was performed, and patient medications and allergies were reviewed. The patient's tolerance of previous anesthesia was also reviewed. The risks and benefits of the procedure and the sedation options and risks were discussed with the patient. All questions were answered, and informed consent was obtained. Prior Anticoagulants: The patient has taken no previous anticoagulant or antiplatelet agents. ASA Grade Assessment: Per anesthesia. After reviewing the risks and benefits, the patient was deemed in satisfactory condition to undergo the procedure. After I obtained informed consent, the scope was passed under direct vision. Throughout the procedure, the patient's blood pressure, pulse, and oxygen saturations were monitored continuously. The colonoscope was introduced through the anus and advanced to the cecum, identified by the appendiceal orifice, ileocecal valve and palpation. The colonoscopy was performed without difficulty. The patient tolerated the procedure well. The quality of the bowel preparation was good. Scope In: 9:29:31 AM Scope Withdrawal Time 0 hours 12 minutes 38 seconds Scope Out: 9:51:56 AM Total Procedure Duration Time 0 hours 22 minutes 25 seconds Findings: The perianal and digital rectal examinations were normal. Three sessile polyps were found in the transverse colon and ascending colon. The polyps were less than 5 mm in size. These polyps were removed with a cold biopsy forceps. Resection and retrieval were complete. The exam was otherwise without abnormality on direct and retroflexion views. Impression: - Three less than 5 mm polyps in the transverse colon and in the ascending colon, removed with a cold biopsy forceps. Resected and retrieved. - The examination was otherwise normal on direct and retroflexion views. Recommendation: - Discharge patient to home. - Resume previous diet. - Continue present medications. - Await pathology results. - Repeat colonoscopy in 5 years for surveillance based on pathology results. Procedure Code(s): --- Professional --- 95183, PT, Colonoscopy, flexible; with biopsy, single or multiple Diagnosis Code(s): --- Professional --- Z12.11, Encounter for screening for malignant neoplasm of colon D12.3, Benign neoplasm of transverse colon (hepatic flexure or splenic flexure) D12.2, Benign neoplasm of ascending colon CPT copyright 2017 [employer]. All rights reserved. The codes documented in this report are preliminary and upon underwater trapper review may be revised to meet current compliance requirements. MD Lexus Hart MD 08/22/2022 10:01:09 AM This report has been signed electronically. Number of Addenda: 0 Note Initiated On: 08/22/2022 9:21 AM
--- NOTE | 2022-08-22 10:02 | OP.CCLET_ITS ---
08/22/2022 Cris Flaherty [address] [place] [address] Re : Colonoscopy procedure for Jena Dewey Dear Dr. Flaherty This procedure was performed on Monday, August 22, 2022. My impressions and recommendations are as follows: Impressions : - Three less than 5 mm polyps in the transverse colon and in the ascending colon, removed with a cold biopsy forceps. Resected and retrieved. - The examination was otherwise normal on direct and retroflexion views. Recommendations : - Discharge patient to home. - Resume previous diet. - Continue present medications. - Await pathology results. - Repeat colonoscopy in 5 years for surveillance based on pathology results. My findings are described in the full procedure note, which is enclosed. If I can be of further assistance, please feel free to contact me at Doctor phone number(s): , Work: . Sincerely, MD Lexus Hart MD 08/22/2022 10:01:09 AM This report has been signed electronically.
== END 2022-08-22 10:55 | disposition home or self-care (01) ==
LOC: EN 07:29 → AC 07:30
PROVIDERS: PCP Internal Medicine; Referring Provider Internal Medicine; Visit Provider Surgery
PROC: 0DJD8ZZ Inspection of Lower Intestinal Tract, Via Natural or Artificial Opening Endoscopic (ICD-10-PCS; CPT 45378; principal; 2022-08-22 08:40)
DX: Z12.11 Encounter for screening for malignant neoplasm of colon (principal); D12.2 Benign neoplasm of ascending colon; D12.3 Benign neoplasm of transverse colon; I12.9 Hypertensive chronic kidney disease with stage 1 through stage 4 chronic kidney disease, or unspecified chronic kidney disease; N18.9 Chronic kidney disease, unspecified; E07.9 Disorder of thyroid, unspecified; Z79.890 Hormone replacement therapy; Z79.899 Other long term (current) drug therapy
CPT/HCPCS: 45380; 88305; J7120; J2405

== ENCOUNTER → 2023-01-14 | Outpatient (CLI) | payer MEDICARE, SELFPAY ==
[2023-01-14 08:07] LABS: Hematocrit 40.4 % (37-47); Hemoglobin 12.6 g/dL (12.0-15.0); Mean Corp Hgb Conc 31.2 g/dL (32-36); Mean Corpuscular Hgb 29.4 pg (27.0-32.0); Mean Corpuscular Volume 94.2 fL (81-99); Mean Platelet Vol. 9.4 fl (6.2-12.0); Platelet Count 123 K/mm3 (150-450); RBC Distribution Width CV 13.3 % (11.6-14.6); RBC Distribution Width SD 46.1 fl (35.1-43.9); Red Blood Count 4.29 M/mm3 (4.2-5.4); White Blood Count 4.3 K/mm3 (4.4-11.0)
[2023-01-14 08:27] LABS: Protein, Urine (Random) 7.7 mg/dL (<11.9); Protein:Creat Ratio 98 mg/g CRE (0-200)
[2023-01-14 08:49] LABS: Albumin, Serum 3.4 g/dL (3.2-5.0); BUN 35 mg/dL (7-18); BUN/Creat Ratio 19.7 RATIO (10-20); Calcium,Total 8.9 mg/dL (8.5-10.1); Chloride 108 mmol/L (98-107); Creatinine, Serum 1.78 mg/dL (0.55-1.02); EST Glomerular Filtration Rate 30 mL/min (>60); Est Glom Filt Rate - Afr Amer 36 mL/min (>60); Glucose 87 mg/dL (74-106); Phosphorus 2.8 mg/dL (2.5-4.9); Potassium 4.2 mmol/L (3.5-5.1); Sodium Level 140 mmol/L (136-145)
[2023-01-14 08:51] LABS: PTHIN 102.2 pg/mL (18.4-80.1)
[2023-01-14 15:57] LABS: Vitamin D,25 Hydroxy 93.3 ng/mL
== END | disposition home or self-care (01) ==
LOC: LAB 07:38
PROVIDERS: PCP Internal Medicine; Referring Provider Internal Medicine Nephrology; Visit Provider Internal Medicine Nephrology
DX: N18.32 Chronic kidney disease, stage 3b (principal); E55.9 Vitamin D deficiency, unspecified; R80.9 Proteinuria, unspecified
CPT/HCPCS: 36415; 80069; 82306; 82570; 83970; 84156; 85027

== ENCOUNTER → 2023-07-24 | Outpatient (CLI) | payer MEDICARE, SELFPAY ==
[2023-07-24 14:55] LABS: Hematocrit 38.2 % (37-47); Hemoglobin 11.9 g/dL (12.0-15.0); Mean Corp Hgb Conc 31.2 g/dL (32-36); Mean Corpuscular Hgb 28.8 pg (27.0-32.0); Mean Corpuscular Volume 92.5 fL (81-99); Mean Platelet Vol. 8.7 fl (6.2-12.0); Platelet Count 170 K/mm3 (150-450); RBC Distribution Width CV 13.1 % (11.6-14.6); RBC Distribution Width SD 44.4 fl (35.1-43.9); Red Blood Count 4.13 M/mm3 (4.2-5.4); White Blood Count 6.4 K/mm3 (4.4-11.0)
[2023-07-24 15:32] LABS: Albumin, Serum 3.5 g/dL (3.2-5.0); BUN 29 mg/dL (7-18); BUN/Creat Ratio 18.5 RATIO (10-20); Chloride 109 mmol/L (98-107); Creatinine, Serum 1.57 mg/dL (0.55-1.02); EST Glomerular Filtration Rate 35 mL/min (>60); Est Glom Filt Rate - Afr Amer 42 mL/min (>60); Glucose 89 mg/dL (74-106); Phosphorus 3.3 mg/dL (2.5-4.9); Potassium 3.8 mmol/L (3.5-5.1); Sodium Level 139 mmol/L (136-145)
[2023-07-24 15:36] LABS: Protein, Urine (Random) < 6.0 mg/dL (<11.9)
[2023-07-24 15:37] LABS: Vitamin D,25 Hydroxy 80.3 ng/mL
== END | disposition home or self-care (01) ==
LOC: LAB 14:32
PROVIDERS: PCP Internal Medicine; Referring Provider Internal Medicine Nephrology; Visit Provider Internal Medicine Nephrology
DX: N18.32 Chronic kidney disease, stage 3b (principal); E55.9 Vitamin D deficiency, unspecified
CPT/HCPCS: 36415; 80069; 82306; 82570; 83970; 84156; 85027

== ENCOUNTER → 2024-04-08 | Outpatient (CLI) | payer MEDICARE, SELFPAY ==
[2024-04-08 09:49] LABS: Absolute Lymphocyte Count 1.03 X10^3/uL (0.83-4.51); Basophil# 0.04 X10^3/uL; Basophil% 0.9 % (0-1); Eosinophil# 0.21 X10^3/uL; Eosinophils% 4.5 % (0-5); Hematocrit 38.9 % (37-47); Hemoglobin 12.2 g/dL (12.0-15.0); Lymphocyte # 1.03 X10^3/ul (0.83-4.51); Lymphocyte % 21.9 % (19-41); Mean Corp Hgb Conc 31.4 g/dL (32-36); Mean Corpuscular Hgb 29.6 pg (27.0-32.0); Mean Corpuscular Volume 94.4 fL (81-99); Mean Platelet Vol. 9.3 fl (6.2-12.0); Monocyte# 0.46 X10^3/uL; Monocyte% 9.8 % (0-10); NRBC Flagged by Analyzer 0 % (0-5); Neutrophil # 2.95 X10^3/uL (2.7-7.7); Neutrophil % 62.7 % (47-70); Platelet Count 174 K/mm3 (150-450); RBC Distribution Width CV 13.4 % (11.6-14.6); RBC Distribution Width SD 46.2 fl (35.1-43.9); Red Blood Count 4.12 M/mm3 (4.2-5.4); White Blood Count 4.7 K/mm3 (4.4-11.0)
[2024-04-08 10:13] LABS: PTHIN 90.8 pg/mL (18.4-80.1)
[2024-04-08 10:17] LABS: Vitamin D,25 Hydroxy 73.3 ng/mL
[2024-04-08 10:39] LABS: Protein, Urine (Random) 10.4 mg/dL (<11.9); Protein:Creat Ratio 256 mg/g CRE (0-200)
[2024-04-08 12:12] LABS: ALB/GLOB Ratio 1.1 RATIO (0.9-2.4); AST(SGOT) 27 U/L (15-37); Alanine Aminotransfer ALT/SGPT 24 U/L (13-56); Albumin, Serum 3.5 g/dL (3.2-5.0); Alkaline Phosphatase 139 U/L (45-117); Anion Gap 4 (5-15); BUN 28 mg/dL (7-18); BUN/Creat Ratio 19.7 RATIO (10-20); Calcium,Total 9.2 mg/dL (8.5-10.1); Chloride 107 mmol/L (98-107); Creatinine, Serum 1.42 mg/dL (0.55-1.02); EST Glomerular Filtration Rate 39 mL/min (>60); Est Glom Filt Rate - Afr Amer 47 mL/min (>60); Free T3 1.7 pg/mL (2.18-3.98); Globulin 3.1 g/dL (2.2-4.2); Glucose 90 mg/dL (74-106); Potassium 5.5 mmol/L (3.5-5.1); Protein, Total 6.6 g/dL (6.4-8.2); Sodium Level 138 mmol/L (136-145)
== END | disposition home or self-care (01) ==
LOC: LAB 08:30
PROVIDERS: PCP Internal Medicine; Referring Provider Internal Medicine; Visit Provider Nurse Practitioner Adult Health
DX: E03.9 Hypothyroidism, unspecified (principal); N18.32 Chronic kidney disease, stage 3b; E21.3 Hyperparathyroidism, unspecified; E55.9 Vitamin D deficiency, unspecified
CPT/HCPCS: 36415; 80053; 82306; 82570; 83970; 84100; 84156; 84439; 84443; 84481; 85025

== ENCOUNTER → 2024-05-07 | Outpatient (CLI) | payer MEDICARE, SELFPAY ==
--- NOTE | 2024-05-07 12:04 | BD_ITS ---
STUDY: DUAL ENERGY X-RAY ABSORPTIOMETRY / DXA REASON FOR EXAM: Female, 69 years old. [id number] TECHNIQUE: Bone Mineral Density (BMD) measurements of lumbar spine and bilateral hips were obtained. COMPARISON: Comparison is made with prior study of June 28, 2022. FINDINGS: Lumbar Spine (L1-L4): g/cm2 (0.947) / T-score (-1.0) / Z-score (1.2) Findings are suggestive of osteopenia with a low fracture risk. Left Femur Total: g/cm2 (0.798) / T-score (-1.2) / Z-score (0.4) Left Femoral Neck: g/cm2 (0.731) / T-score (-1.1) / Z-score (0.8) Right Femur Total: g/cm2 (0.802) / T-score (-1.1) / Z-score (0.4) Right Femoral Neck: g/cm2 (0.661) / T-score (-1.7) / Z-score (0.2) The T-Scores on the most recent prior examination were: Lumbar Spine (L1-L4): There has been worsening of bone density since the previous examination. Left Femur Total: which represents a worsening of 4.3%. Right Femur Total: which represents a worsening of 3.8. BD/Dexa Bone Density Study IMPRESSION: The patient is considered osteopenic as outlined below according to World Va[employer]hav Organization (WHO) criteria with a moderate fracture risk. There has been worsening of bone density since the previous examination. Reference Information: The T-score is the number of standard deviations above or below the standard which is normal for young adults at their peak bone mineral density. The World Health Organization (WHO) interprets the T-scores as follows: Above -1 Normal bone density Between -1 and -2.5 Osteopenia Equal to / or below -2.5 Osteoporosis As a practical clinical guideline, osteopenia may be graded as follows: Mild -1 through -1.5 Moderate -1.6 through -2.0 Severe -2.1 through -2.4 The Z-score is the number of standard deviations above or below age-matched controls. A Z-score of less than -1.5 would be considered abnormal. References: 1. NIH Osteoporosis and Related Bone Diseases www osteo.org 2. International Society for Clinical Densitometry www iscd.org 3. National Osteoporosis Foundation www nof.org Electronically Signed: Danis Chin MD at 14:03 EDT ,
== END | disposition home or self-care (01) ==
LOC: OPBD 12:01
PROVIDERS: PCP Internal Medicine; Referring Provider Internal Medicine; Visit Provider Internal Medicine
DX: Z78.0 Asymptomatic menopausal state (principal)
CPT/HCPCS: 77080

== ENCOUNTER → 2024-10-08 | Outpatient (CLI) | payer MEDICARE, SELFPAY ==
[2024-10-08 15:47] LABS: Albumin, Serum 4.1 g/dL (3.4-4.8); BUN 37 mg/dL (4-19); BUN/Creat Ratio 21.2 RATIO (10-20); Calcium 9.6 mg/dL (7.6-11.0); Carbon Dioxide 24.4 mmol/L (22.0-29.0); Chloride 105 mmol/L (96-108); Creatinine, Serum 1.7 mg/dL (0.6-1.0); EST Glomerular Filtration Rate 31 (>60); Glucose 108 mg/dL (70-99); Potassium 4.7 mmol/L (3.3-5.1); Sodium Level 138 mmol/L (133-145)
[2024-10-08 22:32] LABS: Protein, Urine (Random) 11.7 mg/dL (0.0-12.0); Protein:Creat Ratio 318 mg/g CRE (0-200)
== END | disposition home or self-care (01) ==
LOC: LAB 14:06
PROVIDERS: PCP Internal Medicine; Referring Provider Internal Medicine Nephrology; Visit Provider Internal Medicine Nephrology
DX: N18.32 Chronic kidney disease, stage 3b (principal)
CPT/HCPCS: 36415; 80069; 82570; 84156

== ENCOUNTER → 2025-04-13 | Outpatient (CLI) | payer MEDICARE, SELFPAY ==
[2025-04-13 10:24] LABS: Hematocrit 40.5 % (37-47); Hemoglobin 13.1 g/dL (12.0-15.0); Mean Corp Hgb Conc 32.3 g/dL (32-36); Mean Corpuscular Volume 90.2 fL (81-99); Mean Platelet Vol. 9.4 fl (6.2-12.0); Platelet Count 153 K/mm3 (150-450); RBC Distribution Width CV 14.6 % (11.6-14.6); RBC Distribution Width SD 47.8 fl (35.1-43.9); Red Blood Count 4.49 M/mm3 (4.2-5.4); White Blood Count 4.1 K/mm3 (4.4-11.0)
[2025-04-13 11:20] LABS: Albumin, Serum 4.3 g/dL (3.4-4.8); Anion Gap 11 (5-15); BUN 54 mg/dL (4-19); BUN/Creat Ratio 32.1 RATIO (10-20); Calcium,Total 9.5 mg/dL (7.6-11.0); Carbon Dioxide 18.2 mmol/L (21.0-32.0); Chloride 109 mmol/L (98-108); Glucose 90 mg/dL (70-99); Potassium 4.5 mmol/L (3.3-5.1)
[2025-04-13 11:46] LABS: Creatinine, Urine (random) 36.90 mg/dL (28.00-217.00); Protein, Urine (Random) 12.2 mg/dL (0.0-12.0); Protein:Creat Ratio 331 mg/g CRE (0-200)
== END | disposition home or self-care (01) ==
LOC: LAB 09:39
PROVIDERS: PCP Internal Medicine; Referring Provider Internal Medicine Nephrology; Visit Provider Internal Medicine Nephrology
DX: N18.32 Chronic kidney disease, stage 3b (principal); Q61.3 Polycystic kidney, unspecified
CPT/HCPCS: 36415; 80069; 82570; 84156; 85027

== ENCOUNTER → 2025-05-20 | Outpatient (CLI) | payer MEDICARE, SELFPAY ==
[2025-05-20 10:03] LABS: Hematocrit 40.5 % (37-47); Hemoglobin 13.3 g/dL (12.0-15.0); Immature Granulocytes Count 0.010 X10^3/uL (0.0-0.0); Mean Corp Hgb Conc 32.8 g/dL (32-36); Mean Corpuscular Volume 90.0 fL (81-99); Mean Platelet Vol. 9.0 fl (6.2-12.0); NRBC Flagged by Analyzer 0 % (0-5); Platelet Count 149 K/mm3 (150-450); RBC Distribution Width CV 15.2 % (11.6-14.6); RBC Distribution Width SD 50.4 fl (35.1-43.9); Red Blood Count 4.50 M/mm3 (4.2-5.4); White Blood Count 5.0 K/mm3 (4.4-11.0)
[2025-05-20 11:08] LABS: AST(SGOT) 30 U/L (<=31); Alanine Aminotransfer ALT/SGPT 28 U/L (<=34); Albumin, Serum 4.3 g/dL (3.4-4.8); Alkaline Phosphatase 124 U/L (35-104); Anion Gap 14 (5-15); BUN 44 mg/dL (4-19); BUN/Creat Ratio 27.5 RATIO (10-20); Calcium,Total 9.6 mg/dL (7.6-11.0); Carbon Dioxide 17.9 mmol/L (21.0-32.0); Chloride 106 mmol/L (98-108); Globulin 2.5 g/dL (2.2-4.2); Glucose 90 mg/dL (70-99); Potassium 4.8 mmol/L (3.3-5.1)
== END | disposition home or self-care (01) ==
LOC: LAB 09:40
PROVIDERS: PCP Internal Medicine; Referring Provider Internal Medicine; Visit Provider Internal Medicine
DX: R25.2 Cramp and spasm (principal)
CPT/HCPCS: 36415; 80053; 84443; 85025